=== PATIENT | female | born 1980 | race African-American/Black ===

== ENCOUNTER 2016-06-08 11:08 | Emergency (ER) | payer BC ==
[2016-06-08 11:15] VITALS: BP 143/88
[2016-06-08] MEDS ORDERED: DIPHENHYDRAMINE HCL 25 MG CAPSULE PO ONE (11:17)
[2016-06-08] MEDS ORDERED: ACETAMINOPHEN 325 MG TABLET PO ONE (11:17)
[2016-06-08] MEDS ORDERED: METOCLOPRAMIDE HCL 10 MG TABLET PO ONE (11:17)
--- NOTE | 2016-06-08 11:17 | ER Document Report ---
ED Medical Screen (RME) - General Stated Complaint: RIGHT SHOULDER PAIN Notes: patient is a 35 year old female who was moving furniture yesterday and now presents with right shoulder pain, previous tear in her rotator cuff. also admits to headache, thursday onset, using aleve but returns. denies h/o migraines , denies light/sound sensitivity, emesis. I have greeted and performed a rapid initial assessment of this patient. A comprehensive ED assessment and evaluation of the patient, analysis of test results and completion of the medical decision making process will be conducted by additional ED providers. - Related Data Allergies/Adverse Reactions: No Known Allergies Allergy (Verified 06/08/16 11:15) Past Medical History - Past Medical History Cardiac Medical History: Reports: Hx Hypertension Pulmonary Medical History: Reports: Hx Asthma - Immunizations Immunizations up to date: Yes Hx Diphtheria, Pertussis, Tetanus Vaccination: Yes Physical Exam - Vital signs Vitals: Temp Pulse Resp BP Pulse Ox 98.2 F 59 L 21 H 143/88 H 100 06/08/16 11:13 06/08/16 11:13 06/08/16 11:13 06/08/16 11:13 06/08/16 11:13 Course - Vital Signs Vital signs: Temp Pulse Resp BP Pulse Ox 98.2 F 59 L 21 H 143/88 H 100 06/08/16 11:13 06/08/16 11:13 06/08/16 11:13 06/08/16 11:13 06/08/16 11:13
--- NOTE | 2016-06-08 11:50 | ER Document Report ---
HPI - HPI Pain Level: 4 Context: 35 yo female c/o right shoulder pain and a headache x 3 days. pain started after lifting furniture. pt has a hx/o a right rotator cuff injury. pain is aggrevated with movement. headache is posterior, dull, nonpulsatile. pt denies any dizziness, n/v, neck pain or fever. pt also denies any paresthesia or radiculpathy Associated Symptoms: Headache Exacerbated by: Movement Relieved by: Denies Similar symptoms previously: Yes - ROS Systems Reviewed and Negative: Yes All other systems reviewed and negative - REPRODUCTIVE Reproductive: DENIES: : - DERM Skin Color: Normal Past Medical History - General Information source: Patient - Social History Smoking Status: Unknown if Ever Smoked Chew tobacco use (# tins/day): No Frequency of alcohol use: Occasional Drug Abuse: None Lives with: Family Family History: Reviewed & Not Pertinent Patient has suicidal ideation: No Patient has homicidal ideation: No - Past Medical History Cardiac Medical History: Reports: Hx Hypertension Pulmonary Medical History: Reports: Hx Asthma Renal/ Medical History: Denies: Hx Peritoneal Dialysis - Immunizations Immunizations up to date: Yes Hx Diphtheria, Pertussis, Tetanus Vaccination: Yes Vertical Provider Document - CONSTITUTIONAL Agree With Documented VS: Yes - INFECTION CONTROL TRAVEL OUTSIDE OF THE [place] IN LAST 30 DAYS: No - HEENT HEENT: Atraumatic, PERRLA - NECK Neck: Normal Inspection, Supple - + suboccipital tightness and tenderness - RESPIRATORY Respiratory: Breath Sounds Normal, No Respiratory Distress O2 Sat by Pulse Oximetry: 100 - CARDIOVASCULAR Cardiovascular: Regular Rate, Regular Rhythm - BACK Back: Normal Inspection - MUSCULOSKELETAL/EXTREMETIES Musculoskeletal/Extremeties: Tender - right shoulder with + tenderness anterior and posterior AC. mildly painful arc, but FROM. distal SMC intact - NEURO Level of Consciousness: Awake, Alert, Appropriate - DERM Integumentary: Warm, Dry, No Rash Course - Re-evaluation Re-evalutation: 06/08/16 11:48 H&P c/w shoulder strain. will treat with anti inflammatory meds and muscle relaxant. instructed to alternate ice/heat to painful areas. pt is stable for discharge and follow up with primary care if pain persists. pt agrees with plan. - Vital Signs Vital signs: Temp Pulse Resp BP Pulse Ox 98.2 F 59 L 21 H 143/88 H 100 06/08/16 11:13 06/08/16 11:13 06/08/16 11:13 06/08/16 11:13 06/08/16 11:13 Discharge - Discharge Clinical Impression: Right shoulder strain Qualifiers: Encounter type: initial encounter Qualified Code(s): S46.911A - Strain of unspecified muscle, fascia and tendon at shoulder and upper arm level, right arm , initial encounter Condition: Stable Disposition: HOME, SELF-CARE Instructions: Muscle Strain ([facility]), Ibuprofen (General) ([facility]), Muscle Relaxers ( [facility]), Warm Packs ([facility]), Ice Packs ([facility]) Additional Instructions: please follow up with primary care if these conservative measures are unsuccessful in relieving your pain if pain persist more than 10 days, recommend further evaluation Prescriptions: Ibuprofen [Motrin 800 Mg Tablet] 800 mg PO Q6H #20 tablet Methocarbamol [Robaxin 500 Mg Tablet] 1,000 mg PO Q6 #30 tablet Forms: Return to Work
== END 2016-06-08 12:00 | disposition home or self-care (01) ==
LOC: ER 11:08
DX: S46.911A Strain of unspecified muscle, fascia and tendon at shoulder and upper arm level, right arm, initial encounter (principal); M25.511 Pain in right shoulder; R51 Headache; X58.XXXA Exposure to other specified factors, initial encounter
CPT/HCPCS: 99283